=== PATIENT | male | born 1970 | race Caucasian/White ===

== ENCOUNTER → 2020-01-21 | Day surgery (SDC) | payer OTHER ==
[2020-01-16 11:30] LABS: BASOPHILS # (AUTO) 0.1 (0.0-0.1); BASOPHILS % 1.1 % (0.0-1.0); EOSINOPHILS # (AUTO) 0.3 (0.0-0.4); EOSINOPHILS % 4.9 % (0.0-6.0); HEMATOCRIT 41.3 % (38.2-49.6); HEMOGLOBIN 12.1 g/dL (14.0-18.0); LYMPHOCYTES # (AUTO) 1.1 (1.0-3.2); LYMPHOCYTES % 20.3 % (18.0-39.1); MEAN CORPUSCULAR HEMOGLOBIN 24.4 pg (28-32); MEAN CORPUSCULAR HGB CONC 29.3 g/dL (31-35); MEAN CORPUSCULAR VOLUME 83.4 fL (81-99); MONOCYTES # (AUTO) 0.6 (0.2-0.8); MONOCYTES % 11.2 % (4.4-11.3); NEUTROPHILS # (AUTO) 3.4 (2.1-6.9); NEUTROPHILS % 62.1 % (38.7-80.0); PLATELET COUNT 293 x10e3/uL (140-360); RED BLOOD COUNT 4.95 x10e6/uL (4.3-5.7); RED CELL DISTRIBUTION WIDTH 18.5 % (11.7-14.4)
[2020-01-16 11:40] LABS: INR 0.9; PROTHROMBIN TIME 12.6 seconds (11.9-14.5)
[2020-01-16 11:41] LABS: PARTIAL THROMBOPLASTIN TIME 23.6 seconds (23.8-35.5)
[2020-01-16 11:45] LABS: ANION GAP 13.5 mmol/L (8-16); BLOOD UREA NITROGEN 17 mg/dL (7-26); BUN/CREATININE RATIO 15 (6-25); CALCIUM 9.5 mg/dL (8.4-10.2); CARBON DIOXIDE 25 mmol/L (22-29); CHLORIDE 105 mmol/L (98-107); CREATININE, SERUM 1.14 mg/dL (0.72-1.25); EST GLOMERULAR FILTRATION RATE > 60 ML/MIN (60-); GLUCOSE 126 mg/dL (74-118); POTASSIUM 4.5 mmol/L (3.5-5.1); SODIUM 139 mmol/L (136-145)
[~2020-01-21] MED LIST: ACETAMINOPHEN 1000 MG/100 ML IV ONE; BACITRACIN 50,000 UNIT VIAL ONE; CEFAZOLIN SOD 1 GM/NS 50ML 100 ML IV ONE; DEXAMETHASONE SOD PHOS INJ 4 MG/ML VIAL ONE; EPHEDRINE SULFATE INJ 50 MG/ML VIAL ONE; FENTANYL CITRATE/PF 100MCG/2 ML INJ ONE; FEROSUL325 MG PO; HYDROCODONE/APAP 10MG-325MG TAB ONE; LABETALOL HCL 5 MG/ML 20ML VIAL ONE; LIDOCAINE HCL 2% JELLY 5 ML TUBE ONE; LIDOCAINE HCL 2% LOCAL INJ 5 ML SDV VIAL INJ ONE; LOSARTAN POTAS100 MG PO; MELOXICAM7.5 MG PO; MIDAZOLAM HCL 2 MG/2 ML VIAL ONE; ONDANSETRON HCL INJ 2MG/ML 2ML 2 MG/ML VIAL ONE; PROPOFOL IV EMULSION 10 MG/ML 20 ML VIAL ONE; ROCURONIUM BROMIDE 10 MG/ML 5ML VIAL IV ONE; ROPIVACAINE 246.25 MG, EPINEPHRINE HCL 1:1000 1ML 0.5 MG, CLONIDINE HCL 0.08 MG, KETORO... INJ ONE; SEVOFLURANE INHAL SOLN 250 ML PEN BTL ONE; SUGAMMADEX SODIUM 200 MG/2 ML VIAL IV ONE; TRANEXAMIC ACID 1,000 MG/10 ML ML ONE
--- NOTE | 2020-01-21 07:10 | NUR ---
SPIRITUAL CARE - Pre-Surgery Assessment: Pt in bed. Pt's at bedside. Pt reported supportive attention from family and friends. Intervention: Attending Anesthesiologist provided pastoral presence, hospitality, and sympathetic listening. Acquainted pt with availability of unbundler while hospitalized. Outcome: Pt expressed appreciation for visit. No need for follow up indicated at this time. ARACELIS [facility] Spiritual Care Department O: [phone]
[2020-01-21 14:50] VITALS: BP 120/65
--- NOTE | 2020-01-21 18:39 | Operative Report ---
DATE OF PROCEDURE: 01/21/2020 SURGEON: CHRIS BURTON MD LOCATION: Place of surgery is [facility]. HISTORY: Mr. Churchill is a 49-year-old male with significant and severe end- stage degenerative joint disease of his left hip. The treatment options and alternatives have been reviewed and discussed with the patient in great detail in the Orthopedic Clinic. Due to the patient's ongoing pain and no significant improvement resolution with conservative treatment, he has elected to forgo conservative treatment and proceed on with a left total hip arthroplasty. The patient is aware of the concerns that I had and I relayed these to the patient multiple times in the clinic consisting of his young age of 49 and in addition to his obesity. Again, the patient stated that he cannot exercise because of the hip pain that is affecting his quality of life and gait. He is wanting to proceed on with surgery to forgo any further conservative treatment. The risks and benefits of surgery have been outlined to him in the Orthopedic Clinic as well as again prior to surgery, consisting but not limited to the following infection, blood loss, nerve, blood vessel or tendon injury DVT ongoing pain and stiffness. Possible hardware loosening, fractures, dislocations, possible need for additional surgery. He is aware of the possibility of leg-length discrepancy. The patient was seen and identified in the preoperative holding area. The left hip was marked by myself and the patient agreed. Consent was confirmed with his present. The patient was then given a regional block anesthesia and then brought back to the operative suite. A time-out was taken for Mr. Hamilton Simon for a total hip arthroplasty of his left hip. All were in agreement including nursing staff, anesthesia and myself. The patient was then given a successful general intubation anesthetic and then transferred over to the operative table. The patient is placed in the right lateral decubitus position with the left hip fully exposed. The left hip was then sterilely prepped and draped in the usual standard fashion. A curvilinear incision was made of the left hip in preparation for a modified anterolateral approach. The incision was extended proximally and posteriorly and then distally along the lateral femoral shaft. Subcutaneous bleeding was controlled using the Bovie tip. A second 10- Bard Paul blade was used to make an incision into the iliotibial band in line with the skin incision. It is noted that the patient had a layer of almost 3 inches of adipose fatty tissue prior to getting down just to IT band. Deep [place] retractor was placed in. The gluteus medius and minimus were identified and they were resected off the bony insertion and tagged for later repair. Blunt dissection was carried across the femoral head and neck and capsule. A capsulectomy was carried out using a second 10-Bard Paul blade and the significant degenerative femoral head and multiple off-rise of the femoral neck were readily identified. The femoral head was completely misshapen and devoid of all cartilages throughout the articular surface. The hip was then carefully dislocated en bloc. This allowed full visualization of the entire femoral head again and completely denuded of all articular cartilage with malshapen and deformed femoral head noted with multiple osteophytes along the femoral neck. I went ahead and osteotomy guide was used and a resection cut of the femoral neck was carried out approximately 1 cm above the lesser trochanter. The femoral head was removed and upon multiple different area measurements average out to be approximately around a size 54. Upon this time, acetabulum component: Acetabular retractors were placed in to allow full and complete visualization of the entire acetabulum. The remnant hip capsule and labrum were removed. The patient was noted to have complete cartilage loss of the entire surface of the acetabulum. Upon direct visualization to confirm the correct version and rotation and extension and rotation, the sequential reaming was carried out using acetabular reamers. Confirmation of position maintaining the same position was noted upon direct visualization as well as secondary to confirmation with C-arm fluoroscopy. The acetabulum was reamed up to size 59 and 50 and 60 trial cup was placed in and has excellent fit circumferentially. The final 60 mm Trident II cluster cup was placed in the correct version, again confirmed on direct visualization and secondary confirmation under arthroscopy. A stem was impacted and had excellent fit circumferentially, found to be stable. The acetabulum cup was then augmented with three acetabular screws: 6.5 x 20, 6.5 x 25 and 6.5 x 30, all placed within the bony acetabulum. A temporary liner was placed in. Femoral component: Attention was then turned to the femoral side. A [employer] cutter was then used to remove the lateral cancellous bone, canal finder was placed in and a lateralizer was used. Sequential and Press-Fit broaching was carried up to a Press-Fit number eight stem and a trial reduction was carried out with the +2.5 mm neck length given the most stable fit in all planes with no instability or dislocation or subluxation of the hip. The trial components were removed. Copious irrigation was carried out with 6 L antibiotic saline solution. First, 2nd and final counts were found to be correct. Upon which time, an intracapsular hip alexa injection was carried out with 100 mL of cocktail mixture in the usual standard fashion. The final components were placed in consisting of a Press-Fit secure fit max stem size eight with 132 neck angle. The final insert MDM liner 40 mm G, insert was 28 mm x 54 mm, and the head was 28 mm with a +2.5 mm cobalt chrome. The final prosthesis will be reduced. Upon range of motion testing in all planes of internal and external rotation, abduction, and adduction for hip flexion and extension, total hip prosthesis was stable. There was no subluxation or dislocation of the prosthesis. One final irrigation was carried out. Final counts found to be correct. Upon which time, deep closure was began: The gluteus medius and minimus that were resected off and tagged were repaired back to the bone insertion through bony tunnels using 5 Ethibond. The IT band was closed using combination of 5 Ethibond and 0 Vicryl. Given the significant big layer of adipose tissue, a double layer of fatty tissue closure was done deep and superficial, using 0 Vicryl. The subcutaneous tissues closed using 2-0 Vicryl and skin reapproximated using paco. The patient was placed in Xeroform compressive dressing and hip abduction pillow was applied and the patient was assessed, extubated, and transferred to PACU in stable condition. PREOPERATIVE DIAGNOSIS: Severe end-stage degenerative joint disease of the left hip. POSTOPERATIVE DIAGNOSIS: Severe end-stage degenerative joint disease of the left hip. PROCEDURE: Left total hip arthroplasty with the following components: 1. An acetabular Trident II cluster cup size 60G, MDM liner 48 mm G, insert was 28 mm x 54 mm, head size was 28 mm x +2.5 mm cobalt chrome, acetabulum and femoral component was a secure fit size 8 with 132 neck angle. 2. Hip alexa injection of the right hip with 100 mL of cocktail mixture. ANESTHESIA: Regional block with general intubation anesthetic. ESTIMATED BLOOD LOSS: Less than 100 mL. SPECIMEN: Bone and soft tissue. COMPLICATIONS: None. CONDITION: Stable. Intraoperative finding was severe degenerative joint disease of the left hip. The patient was seen in PACU. Dressings were clean and dry. Capillary refills were brisk. The intraoperative findings reviewed and discussed with his in great detail. We will see how the patient does with initial therapy this morning and then add a second afternoon therapy and make a determination for discharge. The patient already has outpatient therapy set up to begin tomorrow. The patient was discharged home with Lovenox, [place] 10 as well as Keflex. The patient has follow up in Orthopedic Clinic in 12 to 14 days. The patient is to weightbear as tolerated with hip precautions and walker. Both the patient and the patient's were reminded the patient to use abduction pillow at all times while in bed and sleeping. The patient is also discharged home with bilateral Maicol stockings as well as incentive spirometer and abduction pillow. Discharge wound care instructions were also discussed with nursing staff. MD SABA ACUÑA/MARY /[id number] PATRICIO
== END | disposition home or self-care (01) ==
LOC: OR 05:43
PROVIDERS: ATTEND Orthopaedic Surgery
DX: M16.12 Unilateral primary osteoarthritis, left hip (principal); M87.052 Idiopathic aseptic necrosis of left femur; I10 Essential (primary) hypertension; E66.09 Other obesity due to excess calories; F41.9 Anxiety disorder, unspecified; F17.220 Nicotine dependence, chewing tobacco, uncomplicated; Z01.812 Encounter for preprocedural laboratory examination; Z11.59 Encounter for screening for other viral diseases; Z68.39 Body mass index [BMI] 39.0-39.9, adult
CPT/HCPCS: 27130; 36415; 80048; 85025; 85610; 85730; 86850; 86900; 86920; 97110; 97116; 97139; 97161; C1713 ×4; C1776 ×2; J0131; J0171; J0690; J1100; J1885; J2001 ×2; J2250; J2405; J2704; J2795; J3010; J3490; U0002; 76000